=== PATIENT | male | born 1985 | race Caucasian/White ===

== ENCOUNTER 2021-04-01 22:31 | Emergency (ER) | payer SELFPAY ==
[~2021-04-01] VITALS: Ht 172.7 cm; Wt 62.0 kg
[2021-04-01 22:36] VITALS: BP 140/93
[2021-04-01 23:29] LABS: CHLORIDE 106 mEq/L (98-107)
[2021-04-01 23:40] LABS: BASOPHILS % 0.4 % (0.0-2.0); EOSINOPHILS % 5.3 % (0.0-5.0); HEMATOCRIT. 38.6 % (42.0-52.0); HEMOGLOBIN. 13.3 g/dL (14.0-18.0); LYMPHOCYTES % 35.7 % (20.0-50.0); MEAN CORPUSCULAR HEMOGLOBIN 29.7 pg (28.0-32.0); MEAN CORPUSCULAR VOLUME 86.4 fL (80.0-94.0); MONOCYTES % 8.2 % (2.0-8.0); NEUTROPHILS % 50.4 % (40.0-76.0); PLATELET 646 x1000/uL (130-400); RED BLOOD CELL COUNT 4.47 mill/uL (4.7-6.1); RED CELL DISTRIBUTION WIDTH 12.3 % (11.6-14.6)
[2021-04-02] MEDS ORDERED: KETOROLAC 15MG/ML VIAL IV ONE (00:15)
[2021-04-02] MEDS ORDERED: LACTATED RINGERS 1,000 ML IV SCH (00:15)
[2021-04-02] MEDS ORDERED: ONDANSETRON HCL 4MG/2ML INJ IV ONE (00:15)
== END 2021-04-02 03:44 | disposition left against medical advice (07) ==
LOC: ER 22:31
DX: R51.9 Headache, unspecified (principal); R07.89 Other chest pain; F41.9 Anxiety disorder, unspecified; F32.9 Major depressive disorder, single episode, unspecified
CPT/HCPCS: 36415; 71045; 80053; 84484; 85025; 93005; 99285